=== PATIENT | female | born 1980 | race Native Hawaiian/Other Pacific Islander ===

== ENCOUNTER 2021-02-27 09:28 | Outpatient (CLI) | payer OTHER ==
[2021-02-27 10:08] LABS: PLATELET COUNT 159 K/uL (152-353)
== END 2021-02-27 19:48 | disposition home or self-care (01) ==
LOC: LABW 09:28
PROVIDERS: ATTEND Student in an Organized Health Care Education/Training Program
DX: E83.59 Other disorders of calcium metabolism (principal)
CPT/HCPCS: 36415; 80053; 82306; 82330; 82570; 82652; 83970; 84155; 84165; 85027

== ENCOUNTER 2021-03-03 08:39 | Outpatient (CLI) | payer OTHER | END 2021-03-03 19:11 | disposition home or self-care (01) | LOC: LABW 08:39 | PROVIDERS: ATTEND Student in an Organized Health Care Education/Training Program | DX: N20.0 Calculus of kidney (principal) | CPT/HCPCS: 82570; 84300; 84540; 84560 ==

== ENCOUNTER 2021-03-05 11:22 | Outpatient (CLI) | payer OTHER | END 2021-03-05 22:43 | disposition home or self-care (01) | LOC: LABW 11:22 | PROVIDERS: ATTEND Student in an Organized Health Care Education/Training Program | DX: N20.0 Calculus of kidney (principal) | CPT/HCPCS: 82340; 82570; 83735; 83945; 84105 ==

== ENCOUNTER 2021-07-18 10:48 | Outpatient (CLI) | payer OTHER ==
[2021-07-18 11:41] LABS: PLATELET COUNT 195 K/uL (152-353)
== END 2021-07-18 18:55 | disposition home or self-care (01) ==
LOC: RAD 10:48
PROVIDERS: ATTEND Nurse Practitioner Family
DX: R05.3 Chronic cough (principal)
CPT/HCPCS: 36415; 85027

== ENCOUNTER 2022-01-11 06:59 | Outpatient (CLI) | payer OTHER ==
[2022-01-11 07:42] LABS: POTASSIUM 3.5 mmol/L (3.6-5.2)
== END 2022-01-11 20:32 | disposition home or self-care (01) ==
LOC: LABW 06:59
PROVIDERS: ATTEND Student in an Organized Health Care Education/Training Program
DX: N20.0 Calculus of kidney (principal); N18.2 Chronic kidney disease, stage 2 (mild); E55.9 Vitamin D deficiency, unspecified
CPT/HCPCS: 36415; 80053; 81000; 82306; 82570; 83970; 84100; 84156; 85018; 87077; 87086; 87088; 87186

== ENCOUNTER 2022-01-22 09:07 | Outpatient (CLI) | payer OTHER | END 2022-01-22 19:17 | disposition home or self-care (01) | LOC: RAD 09:07 | PROVIDERS: ATTEND Nurse Practitioner Family | DX: M54.59 Other low back pain (principal) ==

== ENCOUNTER 2022-03-07 10:51 | Outpatient (CLI) | payer OTHER ==
[~2022-03-07] VITALS: Ht 160 cm; Wt 65.8 kg
[2022-03-07 11:13] LABS: PLATELET COUNT 126 K/uL (152-353)
[2022-03-07 11:17] LABS: POTASSIUM 3.3 mmol/L (3.6-5.2)
== END 2022-03-07 20:28 | disposition home or self-care (01) ==
LOC: LABW 10:51 → LAB 10:51 → INF 10:51
PROVIDERS: Nurse Practitioner Family; ATTEND Family Medicine
DX: U07.1 COVID-19 (principal)
CPT/HCPCS: 36415; 80053; 85027; 96374; Q0222

== ENCOUNTER 2022-10-14 16:01 | Outpatient (CLI) | payer OTHER ==
[2022-10-14 16:31] LABS: POTASSIUM 3.7 mmol/L (3.6-5.2)
== END 2022-10-14 19:20 | disposition home or self-care (01) ==
LOC: LABW 16:01
PROVIDERS: ATTEND Student in an Organized Health Care Education/Training Program
DX: N18.2 Chronic kidney disease, stage 2 (mild) (principal); E83.59 Other disorders of calcium metabolism; R80.8 Other proteinuria; R82.81 Pyuria; E83.39 Other disorders of phosphorus metabolism; E79.0 Hyperuricemia without signs of inflammatory arthritis and tophaceous disease
CPT/HCPCS: 36415; 80053; 80074; 81000; 82306; 82570; 83735; 83970; 84100; 84156; 84550; 85018; 86592; 86701; 86702; 87389